=== PATIENT | female | born 1965 | race Caucasian/White ===

== ENCOUNTER 2024-09-21 18:14 | Emergency (ER) | payer BC ==
[2024-09-21 19:59] LABS: Absolute Basophils 0.1 K/uL (0-0.5); Absolute Eosinophils 0.2 K/uL (0-0.5); Absolute Lymphocytes (CBC) 4.2 K/uL (0.7-4.9); Absolute Monocytes 0.6 K/uL (0.1-1.3); Absolute Neutrophil 3.2 K/uL (1.8-8.0); Basophils % 0.7 % (0-1.3); Eosinophils % 2.7 % (0-4.4); Hematocrit 42.2 % (36.0-45.0); Hemoglobin 14.2 g/dL (12.0-15.0); MCH 28.3 pg (27.0-35.0); MCHC 33.6 g/dL (32.0-36.0); MPV 8.5 fL (7.6-11.3); Monocytes % 6.8 % (3.3-12.3); Neutrophils % 38.8 % (41.7-73.7); Nucleated Red Blood Cells % 0.2 % (0-0); Platelets 256 thou/uL (152-406); RBC Red Blood Cell Count 5.02 M/uL (3.86-4.86); Red Cell Distribution Width 13.8 % (12.1-15.2)
[2024-09-21] MEDS ORDERED: MECLIZINE HCL 12.5 MG TAB ONE (20:01)
[2024-09-21] MEDS ORDERED: NA CHLORIDE 0.9% 1,000 ML ONE (20:01)
[2024-09-21 20:09] LABS: PT Prothrombin Time 11.4 SECONDS (10-13.0)
[2024-09-21 20:21] LABS: ALT/SGPT 26 U/L (13-56); Albumin 3.7 g/dL (3.4-5.0); Albumin/Globulin Ratio 0.9 (1.1-1.8); Alkaline Phosphatase 91 U/L (45-117); Anion Gap 9.3 mEq/L (5.0-15.0); BUN Blood Urea Nitrogen 12 mg/dL (7-18); Bicarbonate 29 mEq/L (21-32); Bilirubin Total 0.4 mg/dL (0.2-1.0); Globulin 4.3 g/dL (2.3-3.5); Glomerular Filtration Rate 75 ml/min (=/>90); Glucose Level 175 mg/dL (74-106); Potassium 3.3 mEq/L (3.5-5.1); Sodium Level 137 mEq/L (136-145)
[2024-09-21 20:26] LABS: AST/SGOT < 10 U/L (15-37); Bilirubin Direct < 0.2 mg/dL (0-0.2); Bilirubin Indirect, Calculated 0.2 mg/dL (0.2-0.8); Troponin High Sensitivity < 3.0 pg/mL (<58.9)
[2024-09-21 21:00] LABS: Band Neutrophils 2 % (0-1); Differential Total Cells Count 100; Eosinophils 3 % (0-3); Lymphocytes 45 % (15-42); Monocytes 3 % (0-10); Reactive Lymphocytes 17 %; Segmented Neutrophils 30 % (40-80)
[2024-09-21 21:01] LABS: Blood Morphology Comment NOT SEEN (NOT SEEN); Platelet Estimate ADEQ
--- NOTE | 2024-09-21 21:28 | RAD REPORT ---
EXAM: CT brain without contrast HISTORY: Vertigo COMPARISON: None TECHNIQUE: Multiple contiguous axial images were obtained and a CT of the brain without contrast.. Sagittal and coronal reconstruction performed. Automated exposure control, adjustment of the mA and/or kV according to patient size, and/or iterative reconstruction. Unless otherwise specified, incidental f indings do not require dedicated imaging follow-up FINDINGS: An intracranial bleed is not seen Ventricles are normal caliber No extra-axial fluid collection noted No significant hypodensity within the brain No fluid within the visualized sinuses or mastoids noted. IMPRESSION: No acute intracranial abnormality noted. If the patient continues to have symptoms to suggest an acute intracranial abnormality then MRI of th e brain would be recommended.
--- NOTE | 2024-09-21 21:40 | RAD REPORT ---
EXAMINATION: Neck Angio CLINICAL INDICATION: Vertigo TECHNIQUE: Axial CT images were obtained from the aortic arch to the skull base after intravenous adm inistration of 100 cc Isovue-370 utilizing angiographic protocol. Multiplanar reformats, as well as 3D post-processing (maximum intensity projection images, volume rendered images and/or shaded surface rendered images) were generated and reviewed. One or more of the following dose reduction techniques were used: Automated exposure control, adjustment of the mA and/or kV according to patient size, and/or iterative reconstruction. Unless otherwise specified, incidental findings do not require dedicated imaging follow-up. COMPARISON: No prior exam. FINDINGS: The visualized aortic arch and great vessels do not demonstrate a significant abnormality Common carotid, internal carotid and external carotid arteries bilaterally Vertebral arteries unremarkable No significant stenosis noted. A dissection is not seen. Methods for NASCET criteria: Mild stenosis, 0% to 49%; Moderate stenosis 50% to 69%; Severe stenosis, 70% to 99% IMPRESSION: No acute vascular abnormality displayed
--- NOTE | 2024-09-21 21:40 | RAD REPORT ---
EXAMINATION: CTA HEAD CLINICAL INDICATION: Vertigo TECHNIQUE: Axial CT images were obtained through the head after 100 cc Isovue-370 intravenous contras t utilizing angiographic protocol with 3D post-processing (maximum intensity projection images, volume rendered images and/or shaded surface rendered images). One or more of the following dose red uction techniques were used: Automated exposure control, adjustment of the mA and/or kV according to patient size, and/or iterative reconstruction. Unless otherwise specified, incidental findings do not require dedicated imaging follow-up. COMPARISON: None FINDINGS: Distal internal carotid, basilar, anterior cerebral, middle cerebral and right posterior cerebral art eries do not demonstrate a significant stenosis Mild narrowing of portions of the left posterior cerebral artery. origin left posterior cerebral artery. An aneurysm not noted. No large vessel occlusion IMPRESSION: Mild narrowing of portions of the the left posterior cerebral artery.
--- NOTE | 2024-09-21 21:56 | EDPHYS ---
Physician Documentation [facility] Name: Lilian Dumont Age: 59 yrs Sex: Female : 1965 Arrival Date: 09/21/2024 Time: 18:14 Bed 14 Private MD: ED Physician Дмитрий Arcos HPI: 09/21 20:35 This 59 yrs old Female presents to ER via Ambulatory with complaints of Dizziness. rt 20:35 1 week ago, the patient states that she slept awkwardly on her mattress that deflated rt on her throat at night. She states that the next day, she developed a neck pain as well as vertigo with nausea and vomiting. She has since had 3 similar episodes. She states that her vertigo has improved today but she does not feel back to baseline. When the episodes are strong, it is difficult for her to walk. She denies other complaints at this time, symptoms are moderate in severity, no other aggravating alleviating factors.. Historical: - Allergies: 18:41 No Known Allergies; db - PMHx: 18:41 diabetes mellitus; Hypertensive disorder; db - Immunization history:: Adult Immunizations unknown. - Infectious Disease History:: Denies. - Social history:: Smoking status: Patient denies any tobacco usage or history of. - Family history:: not pertinent. ROS: 20:35 Constitutional: Negative for fever, chills, and weight loss, Abdomen/GI: Negative for rt abdominal pain, nausea, vomiting, diarrhea, and constipation, MS/Extremity: Negative for injury and deformity, Skin: Negative for injury, rash, and discoloration, 20:35 Abdomen/GI: Positive for nausea and vomiting, 20:35 Neuro: Positive for dizziness, Negative for loss of consciousness, Exam: 20:35 Constitutional: This is a well developed, well nourished patient who is awake, alert, rt and in no acute distress. Chest/axilla: Normal chest wall appearance and motion. Nontender with no deformity. No lesions are appreciated. Cardiovascular: Regular rate and rhythm with a normal S1 and S2. No gallops, murmurs, or rubs. Normal PMI, no JVD. No pulse deficits. Respiratory: Lungs have equal breath sounds bilaterally, clear to auscultation and percussion. No rales, rhonchi or wheezes noted. No increased work of breathing, no retractions or nasal flaring. Abdomen/GI: Soft, non-tender, with normal bowel sounds. No distension or tympany. No guarding or rebound. No evidence of tenderness throughout. Skin: Warm, dry with normal turgor. Normal color with no rashes, no lesions, and no evidence of cellulitis. 20:35 Eyes: Extraocular muscles are intact, no visual field deficits, no nystagmus noted on lateral gaze, head impulse and test of skew negative. 20:35 ECG was reviewed by the Attending Physician. 20:35 Neuro: Cranial nerves II through XII intact, strength and sensation intact in upper and lower extremities, speech normal, no ataxia on [id number], Vital Signs: 18:38 BP 150 / 105; Pulse 107; Resp 20; Temp 98.4; Pulse Ox 99% ; Weight 83.91 kg; Height 5 db ft. 2 in. ; 20:10 BP 110 / 61; Pulse 79; Resp 18; Pulse Ox 100% on R/A; kj2 21:00 BP 125 / 84; Pulse 98; Resp 20; Pulse Ox 99% on R/A; kj2 21:57 BP 124 / 82; Pulse 78; Resp 18; Temp 97.9; Pulse Ox 100% on R/A; kj2 18:38 Body Mass Index 33.84 (83.91 kg, 157.48 cm) db MDM: 18:57 Medical Screening Exam initiated rt 22:56 Differential diagnosis: Peripheral vertigo, central vertigo, vertebral artery rt dissection. Data reviewed: vital signs, nurses notes, lab test result(s), EKG, radiologic studies. Consideration of Admission/Observation Escalation of care including admission/observation considered. Symptoms significantly improving with meclizine, has no focal neurologic deficits, hints exam is reassuring, low suspicion for central vertigo given negative angiograms, no signs of vertebral artery dissection. Believe that patient is stable for outpatient care, return precautions were discussed.. Independent interpretation of the following test(s) in the Emergency Department CT Scan: My interpretation is No intracranial hemorrhage seen on my interpretation of CT scan images. Care significantly affected by the following chronic conditions: Diabetes, Hypertension. Counseling: I had a detailed discussion with the patient and/or guardian regarding the historical points, exam findings, and any diagnostic results supporting the discharge/admit diagnosis, lab results, radiology results, the need for outpatient follow up, to return to the emergency department if symptoms worsen or persist or if there are any questions or concerns that arise at home. Response to treatment: the patient's symptoms have resolved after treatment. 09/21 19:20 Order name: Basic Metabolic Panel; Complete Time: 21:46 rt 09/21 19:20 Order name: CBC with Diff; Complete Time: 21:46 rt 09/21 19:20 Order name: Hepatic Function; Complete Time: 21:46 rt 09/21 19:20 Order name: High Sensitivity Troponin; Complete Time: 21:46 rt 09/21 19:20 Order name: Protime (+inr); Complete Time: 21:46 rt 09/21 19:20 Order name: Ptt, Activated; Complete Time: 21:46 rt 09/21 20:03 Order name: Glucose, Ancillary Testing; Complete Time: 21:46 EDMS 09/21 20:06 Order name: Glucose, Ancillary Testing EDMS 09/21 20:06 Order name: Manual Differential; Complete Time: 21:46 EDMS 09/21 19:20 Order name: CT Head Angio; Complete Time: 21:46 rt 09/21 19:20 Order name: CT Neck Angio; Complete Time: 21:46 rt 09/21 19:20 Order name: CT Head Brain wo Cont; Complete Time: 21:46 rt 09/21 19:20 Order name: Accucheck; Complete Time: 19:51 rt 09/21 19:20 Order name: Cardiac monitoring; Complete Time: 19:45 rt 09/21 19:20 Order name: EKG - Nurse/Tech; Complete Time: 19:45 rt 09/21 19:20 Order name: IV Saline Lock; Complete Time: 19:45 rt 09/21 19:20 Order name: Labs collected and sent; Complete Time: 19:45 rt 09/21 19:20 Order name: NPO; Complete Time: 20:19 rt 09/21 19:20 Order name: O2 Per Protocol; Complete Time: 19:45 rt 09/21 19:20 Order name: O2 Sat Monitoring; Complete Time: 19:45 rt 09/21 19:20 Order name: Stroke Swallow Screen; Complete Time: 20:06 rt EC:35 Rate is 87 beats/min. Rhythm is regular, Normal Sinus Rhythm with No ectopy. QRS [place] rt is Normal. [place] interval is normal. QRS interval is normal. QT interval is normal. No Q waves. T waves are Normal. No ST changes noted. Administered Medications: 20:06 Drug: Meclizine PO 50 mg PO once Route: PO; kj2 22:00 Follow up: Response: No adverse reaction kj2 20:06 Drug: NS 0.9% IV 1000 ml IV at 1 bolus Per protocol; to be given as a bolus over 60 kj2 minutes Route: IV; Rate: 1 bolus; Site: right antecubital; 22:00 Follow up: IV Status: Completed infusion; IV Intake: 1000ml kj2 Disposition Summary: 09/21/24 21:55 Discharge Ordered Notes: Location: Home rt Problem: new rt Symptoms: have improved rt Condition: Stable rt Diagnosis - Benign paroxysmal vertigo, unspecified ear rt Followup: rt - With: Private Physician - When: 2 - 3 days - Reason: Discharge Instructions: - Discharge Summary Sheet rt - Benign Positional Vertigo rt Forms: - Medication Reconciliation Form rt - Antibiotic Education rt - Prescription Opioid Use rt - Patient Portal Instructions rt - Leadership Thank You Letter rt Prescriptions: - Meclizine 25 mg Oral Tablet - take 1 tablet ORAL route every 8 hours As needed; 30 tablet; Refills: 0, rt Product Selection Permitted Signatures: Dispatcher [employer] EDTeresita Cooper, RN RN db Дмитрий Arcos MD MD rt Bertha Guillen RN RN kj2 Corrections: (The following items were deleted from the chart) 19:20 19:20 Neck Angio+CT.RAD.BRZ ordered. EDMS EDMS 19:20 19:20 Head Brain Wo Cont+CT.RAD.BRZ ordered. EDMS EDMS
--- NOTE | 2024-09-21 21:56 | ER ---
Nurse's Notes [facility] Name: Lilian Dumont Age: 59 yrs Sex: Female : 1965 Arrival Date: 09/21/2024 Time: 18:14 Bed 14 Private MD: Diagnosis: Benign paroxysmal vertigo, unspecified ear Presentation: 09/21 18:38 Chief complaint: Patient states: DIZZINESS X 1 WEEK STARTED LAST SUNDAY STATES SLEPT db ON A AIR MATTRESS THAT DEFLATED OVER NIGHT THEN VERTIGO HAS NOT STOPPED. STATES WENT AWAY THE NEXT DAY CAME BACK 3 DAYS LATER WENT AWAY AND CAME BACK THIS AM. STATES SPOKE TO PCP OFFICE AND WAS TOLD TO COME TO ER IF COMES BACK AGAIN. THIS AM FELT BAD WITH NAUSEA AND VOMITING AND HEAD PAIN RADIATING DOWN BACK OF NECK WITH HEAD "PRESSURE". Coronavirus screen: Client denies travel out of the [place] in the last 14 days. At this time, the client does not indicate any symptoms associated with coronavirus-19. Ebola Screen: Patient negative for fever greater than or equal to 101.5 degrees Fahrenheit, and additional compatible Ebola Virus Disease symptoms Patient denies exposure to infectious person. Patient denies travel to an Ebola-affected area in the 21 days before illness onset. No symptoms or risks identified at this time. Initial Sepsis Screen: Does the patient meet any 2 criteria? No. Patient's initial sepsis screen is negative. Does the patient have a suspected source of infection? No. Patient's initial sepsis screen is negative. Risk Assessment: Do you want to hurt yourself or someone else? Patient reports no desire to harm self or others. Onset of symptoms was September 21, 2024. 18:38 Method Of Arrival: Ambulatory db 18:38 Acuity: XUAN 2 db Triage Assessment: 18:41 General: Appears in no apparent distress. comfortable, Behavior is calm, cooperative. db Pain: Denies pain. 18:43 Neuro: Level of Consciousness is awake, alert, obeys commands, Oriented to person, db place, time, situation, Market [employer] Executive are equal bilaterally Moves all extremities. Gait is steady, Speech is normal, Facial symmetry appears normal, Reports dizziness, headache. Historical: - Allergies: 18:41 No Known Allergies; db - PMHx: 18:41 diabetes mellitus; Hypertensive disorder; db - Immunization history:: Adult Immunizations unknown. - Infectious Disease History:: Denies. - Social history:: Smoking status: Patient denies any tobacco usage or history of. - Family history:: not pertinent. Screenin:15 [facility] ED Fall Risk Assessment (Adult) History of falling in the last 3 months, kj2 including since admission No falls in past 3 months (0 pts) Confusion or Disorientation No (0 pts) Intoxicated or Sedated No (0 pts) Impaired Gait No (0 pts) Mobility Assist Device Used No (0 pt) Altered Elimination No (0 pt) Score/Fall Risk Level 0 - 2 = Low Risk Maintained a safe environment, Hourly rounding (assess needs \\T\\ fall precautionary measures) done. Abuse screen: Denies threats or abuse. Denies injuries from another. Nutritional screening: No deficits noted. Tuberculosis screening: No symptoms or risk factors identified. Assessment: 19:15 General: Appears in no apparent distress. Behavior is calm, cooperative. Pain: Denies kj2 pain. Neuro: Level of Consciousness is awake, alert, obeys commands, Oriented to person, place, time, situation. Cardiovascular: Patient's skin is warm and dry. Respiratory: Airway is patent Respiratory effort is even, unlabored. GI: No signs and/or symptoms were reported involving the gastrointestinal system. : No signs and/or symptoms were reported regarding the genitourinary system. 20:08 Reassessment: Patient appears in no apparent distress at this time. Patient and/or kj2 family updated on plan of care and expected duration. Pain level reassessed. Patient is alert, oriented x 3, equal unlabored respirations, skin warm/dry/pink. 21:00 Reassessment: Patient appears in no apparent distress at this time. Patient and/or kj2 family updated on plan of care and expected duration. Pain level reassessed. Patient is alert, oriented x 3, equal unlabored respirations, skin warm/dry/pink. 21:57 Reassessment: Patient appears in no apparent distress at this time. Patient and/or kj2 family updated on plan of care and expected duration. Pain level reassessed. Patient is alert, oriented x 3, equal unlabored respirations, skin warm/dry/pink. Vital Signs: 18:38 BP 150 / 105; Pulse 107; Resp 20; Temp 98.4; Pulse Ox 99% ; Weight 83.91 kg; Height 5 db ft. 2 in. ; 20:10 BP 110 / 61; Pulse 79; Resp 18; Pulse Ox 100% on R/A; kj2 21:00 BP 125 / 84; Pulse 98; Resp 20; Pulse Ox 99% on R/A; kj2 21:57 BP 124 / 82; Pulse 78; Resp 18; Temp 97.9; Pulse Ox 100% on R/A; kj2 18:38 Body Mass Index 33.84 (83.91 kg, 157.48 cm) db ED Course: 18:17 Patient arrived in ED. im 18:41 Triage completed. db 18:43 Arm band placed on Patient placed in an exam room. db 18:56 Дмитрий Arcos MD is Attending Physician. rt 19:15 Patient has correct armband on for positive identification. Bed in low position. Call kj2 light in reach. Provided Education on: call light. 19:45 EKG done, by tech ed teacher. af3 19:45 Inserted saline lock: 20 gauge in right antecubital area, using aseptic technique. af3 Blood collected. Flushed with 10 mL NS. 19:45 Initial lab(s) drawn, by me, sent to lab. Inserted. af3 19:57 Bertha Guillen, RN is Primary Nurse. kj2 20:09 No provider procedures requiring assistance completed. kj2 20:19 Glucose, Ancillary Testing Sent. kj2 21:04 CT Head Angio In Process Unspecified. EDMS 21:04 CT Neck Angio In Process Unspecified. EDMS 21:05 CT Head Brain wo Cont In Process Unspecified. EDMS 21:59 IV discontinued, intact, bleeding controlled, No redness/swelling at site. Pressure kj2 dressing applied. Administered Medications: 20:06 Drug: Meclizine PO 50 mg PO once Route: PO; kj2 22:00 Follow up: Response: No adverse reaction kj2 20:06 Drug: NS 0.9% IV 1000 ml IV at 1 bolus Per protocol; to be given as a bolus over 60 kj2 minutes Route: IV; Rate: 1 bolus; Site: right antecubital; 22:00 Follow up: IV Status: Completed infusion; IV Intake: 1000ml kj2 Medication: 20:09 VIS not applicable for this client. kj2 Intake: 22:00 IV: 1000ml; Total: 1000ml. kj2 Outcome: 21:55 Discharge ordered by . rt 21:58 Discharged to home ambulatory, kj2 21:58 Condition: stable 21:58 Discharge instructions given to patient, Instructed on discharge instructions, follow up and referral plans. Demonstrated understanding of 22:09 Patient left the ED. kj2 Signatures: Dispatcher [employer] Teresita Torres, RN RN Дмитрий Hassan MD MD rt Radha Pro Krystal, RN RN kj2 Brigitte Smith
[2024-09-21 22:59] VITALS: BP 124/82; TEMP 97.9; O2SAT 100
--- NOTE | 2024-09-23 11:03 | EKG ---
Test Date: 2024-09-21 Test Time: 19:36:28 Merchandise Manager: AF MEASUREMENT RESULTS: Intervals: Rate: 87 ND: 164 QRSD: 74 QT: 376 QTc: 452 [employer]: P: 52 ND: 164 QRS: 16 T: 18 INTERPRETIVE STATEMENTS: Normal sinus rhythm Normal ECG No previous ECG available for comparison Electronically Signed On 09-23-24 10:59:03 CDT by Kyrie Armenta
== END 2024-09-21 22:09 | disposition home or self-care (01) ==
LOC: ER 18:14
DX: H81.10 Benign paroxysmal vertigo, unspecified ear (principal)
CPT/HCPCS: 96361; 93005; 85025; 80048; 36415; 85610; 82947; 80076; 85730; 84484; 70450; 70496; 70498; 96360; 99284; Q9967; J8597; J7030